=== PATIENT | male | born 1960 | race Caucasian/White ===

== ENCOUNTER 2020-10-23 14:39 | Emergency (ER) | payer SELFPAY ==
[~2020-10-23] VITALS: Ht 177.8 cm; Wt 113.4 kg
[2020-10-23] MEDS ORDERED: LIPITOR40 MG PO (15:06)
[2020-10-23] MEDS ORDERED: NORCO 5-325 TA1 EACH PO (16:13)
== END 2020-10-23 16:30 | disposition home or self-care (01) ==
LOC: ED 14:39
DX: S50.11XA Contusion of right forearm, initial encounter (principal); V86.69XA Passenger of other special all-terrain or other off-road motor vehicle injured in nontraffic accident, initial encounter; Z79.899 Other long term (current) drug therapy
CPT/HCPCS: 29125; 73090; 73110; 99283-25